=== PATIENT | male | born 1970 | race Two or more races ===

== ENCOUNTER 2024-05-30 07:34 | Outpatient (CLI) | payer OTHER | END 2024-05-30 07:35 | disposition home or self-care (01) | LOC: NUCLEAR 07:34 | DX: C67.2 Malignant neoplasm of lateral wall of bladder (principal); R91.1 Solitary pulmonary nodule; B18.2 Chronic viral hepatitis C; F17.200 Nicotine dependence, unspecified, uncomplicated ==